=== PATIENT | male | born 1990 | race Caucasian/White ===

== ENCOUNTER 2020-02-11 16:00 | Emergency (ER) | payer BC, OTHER ==
[~2020-02-11] VITALS: Ht 190.5 cm; Wt 64.7 kg
[2020-02-11] MEDS ORDERED: LORazepam 2 MG/ML, 1ML ONE (16:49)
[2020-02-11] MEDS ORDERED: THIAMINE 100 MG/ML, 2ML ONE (16:49)
[2020-02-11] MEDS ORDERED: SODIUM CHLORIDE FLUSH 10ML SYR IVF ONE (17:00)
[2020-02-11] MEDS ORDERED: LORazepam 2 MG/ML, 1ML IVPush ONE (17:00)
[2020-02-11] MEDS ORDERED: THIAMINE 200 MG in SODIUM CHLORIDE 0.9% 50 ML IV ONE (17:00)
[2020-02-11] MEDS ORDERED: SODIUM CHLORIDE 0.9% 1,000ML IVBOLUS ONE (17:00)
[2020-02-11 17:25] LABS: BASOPHILS % (AUTO) 0 % (0-1); EOSINOPHILS # (AUTO) 0.03 x10^3/uL (0-0.4); EOSINOPHILS % (AUTO) 0 % (1-7); LYMPHOCYTES # (AUTO) 1.24 x10^3/uL (1-3.4); LYMPHOCYTES % (AUTO) 13 % (22-44); MD NO; MEAN CORPUSCULAR HEMOGLOBIN 33.8 pg (27.5-34.5); MEAN CORPUSCULAR HGB CONC 33.5 g/dL (33.2-36.2); MEAN CORPUSCULAR VOLUME 101.1 fL (81-97); MEAN PLATELET VOLUME 10.2 fL (7.4-10.4); MONOCYTES # (AUTO) 0.56 x10^3/uL (0.2-0.8); MONOCYTES % (AUTO) 6 % (2-9); NEUTROPHILS # (AUTO) 7.87 x10^3/uL (1.8-6.8); NEUTROPHILS % (AUTO) 81 % (42-75); PLATELET COUNT 185 x10^3/uL (130-400); RED BLOOD COUNT 4.47 x10^6/uL (4.38-5.82); RED CELL DISTRIBUTION WIDTH 13.1 % (9.4-14.8)
[2020-02-11 17:31] LABS: ALBUMIN 4.1 g/dL (3.4-5.0); ANION GAP 8 mmol/L (5-15); CALCIUM 9.2 mg/dL (8.5-10.1); CHLORIDE 95 mmol/L (98-107)
[2020-02-11 17:36] LABS: ALANINE AMINOTRANSFERASE 180 U/L (12-78); ALKALINE PHOSPHATASE 74 U/L (45-117); BILIRUBIN,TOTAL 1.6 mg/dL (0.2-1.0); CREATININE 1.41 mg/dL (0.7-1.3); TOTAL PROTEIN 7.3 g/dL (6.4-8.2)
[2020-02-11] MEDS ORDERED: POTASSIUM CHLORIDE 20 MEQ TAB.ER.PRT PO ONE (19:00)
[2020-02-11 19:01] VITALS: BP 117/75
[2020-02-11] MEDS ORDERED: POTASSIUM CHLORIDE 20 MEQ TAB.ER.PRT ONE (19:03)
[2020-02-11 19:23] LABS: AMPHETAMINE SCREEN, URINE Negative (Negative); BARBITURATE SCREEN, URINE Negative (Negative); CANNABINOID SCREEN, URINE Positive (Negative); COCAINE SCREEN, URINE Positive (Negative); METHADONE SCREEN, URINE Negative (Negative); OPIATE SCREEN, URINE Negative (Negative)
[2020-02-11 19:24] LABS: BENZODIAZEPINE SCREEN, URINE Negative (Negative)
== END 2020-02-11 20:41 | disposition home or self-care (01) ==
LOC: ED 19:27
DX: R56.9 Unspecified convulsions (principal); N28.9 Disorder of kidney and ureter, unspecified; F10.239 Alcohol dependence with withdrawal, unspecified; E87.6 Hypokalemia; R51 Headache; R00.0 Tachycardia, unspecified; R94.5 Abnormal results of liver function studies; Y90.9 Presence of alcohol in blood, level not specified
CPT/HCPCS: 36415; 70450; 80053; 80307; 85025; 93005; 96365; 96366; 96375; 99285; J2060; J3411; J7030

== ENCOUNTER 2020-04-02 17:05 | Emergency (ER) | payer SELFPAY ==
[~2020-04-02] VITALS: Ht 177.8 cm; Wt 80.0 kg
[2020-04-02 17:08] VITALS: BP 133/86
--- NOTE | 2020-04-02 17:25 | NUR ---
BELONGINGS PLACED IN LOCKER. SITTER OUTSIDE ROOM
--- NOTE | 2020-04-02 19:18 | NUR ---
Assumed care of pt from day shift RN. Resting comfortably on stretcher. Visible chest rise/fall noted. Sitter remains at bedside
== END 2020-04-02 20:30 | disposition home or self-care (01) ==
LOC: ED 19:16
DX: F10.120 Alcohol abuse with intoxication, uncomplicated (principal); R45.851 Suicidal ideations; F32.9 Major depressive disorder, single episode, unspecified; Y90.9 Presence of alcohol in blood, level not specified
CPT/HCPCS: 99283

== ENCOUNTER 2020-04-05 15:00 | Emergency (ER) | payer SELFPAY ==
[~2020-04-05] VITALS: Ht 190.5 cm; Wt 64.9 kg
[2020-04-05 15:13] VITALS: BP 124/85
--- NOTE | 2020-04-05 15:22 | NUR ---
MOTHER'S CONTACT: [phone]
--- NOTE | 2020-04-05 16:25 | NUR ---
PT ON PHONE WITH MOTHER DURING DC. MOTHER AWARE OF DISCHARGE.
== END 2020-04-05 16:29 ==
LOC: ED 16:23
DX: F10.120 Alcohol abuse with intoxication, uncomplicated (principal); Y90.0 Blood alcohol level of less than 20 mg/100 ml
CPT/HCPCS: 99281

== ENCOUNTER 2020-04-07 08:47 | Emergency (ER) | payer SELFPAY ==
[~2020-04-07] VITALS: Ht 190.5 cm; Wt 56.8 kg
[2020-04-07] MEDS ORDERED: KETOROLAC 30 MG/1 ML ONE (09:54)
[2020-04-07] MEDS ORDERED: LORazepam 2 MG/ML, 1ML ONE (09:55)
[2020-04-07] MEDS ORDERED: LORazepam 2 MG/ML, 1ML IVPush ONE (10:00)
[2020-04-07] MEDS ORDERED: KETOROLAC 30 MG/1 ML IVPush ONE (10:00)
[2020-04-07 10:08] VITALS: BP 111/68
[2020-04-07 10:34] LABS: BASOPHILS # (AUTO) 0.06 x10^3/uL (0-0.1); BASOPHILS % (AUTO) 1 % (0-1); EOSINOPHILS # (AUTO) 0.04 x10^3/uL (0-0.4); EOSINOPHILS % (AUTO) 1 % (1-7); LYMPHOCYTES # (AUTO) 1.25 x10^3/uL (1-3.4); LYMPHOCYTES % (AUTO) 19 % (22-44); MD NO; MEAN CORPUSCULAR HGB CONC 33.4 g/dL (33.2-36.2); MEAN CORPUSCULAR VOLUME 101.9 fL (81-97); MEAN PLATELET VOLUME 8.2 fL (7.4-10.4); MONOCYTES # (AUTO) 0.44 x10^3/uL (0.2-0.8); MONOCYTES % (AUTO) 7 % (2-9); NEUTROPHILS # (AUTO) 4.76 x10^3/uL (1.8-6.8); NEUTROPHILS % (AUTO) 73 % (42-75); PLATELET COUNT 272 x10^3/uL (130-400); RED BLOOD COUNT 4.14 x10^6/uL (4.38-5.82); RED CELL DISTRIBUTION WIDTH 14.1 % (9.4-14.8)
[2020-04-07 10:44] LABS: ALBUMIN 3.7 g/dL (3.4-5.0); ANION GAP 7 mmol/L (5-15); CALCIUM 8.6 mg/dL (8.5-10.1); CHLORIDE 104 mmol/L (98-107); CREATININE 0.91 mg/dL (0.7-1.3)
[2020-04-07 10:48] LABS: TROPONIN I < 0.015 ng/mL (0.000-0.045)
[2020-04-07] MEDS ORDERED: CHLORDIAZEPOXIDE 25 MG CAPSULE PO PRN (11:00)
[2020-04-07] MEDS ORDERED: CHLORDIAZEPOXIDE 25 MG CAPSULE ONE (11:12)
== END 2020-04-07 11:31 | disposition home or self-care (01) ==
LOC: ED 09:26
DX: K22.6 Gastro-esophageal laceration-hemorrhage syndrome (principal); R07.89 Other chest pain; F10.20 Alcohol dependence, uncomplicated; I48.91 Unspecified atrial fibrillation; I51.7 Cardiomegaly; F17.290 Nicotine dependence, other tobacco product, uncomplicated; Y90.9 Presence of alcohol in blood, level not specified
CPT/HCPCS: 36415; 71045; 80048; 82040; 84484; 85025; 85379; 93005; 96374; 96375; 99284; J1885; J2060